=== PATIENT | female | born 1990 | race Caucasian/White ===

== ENCOUNTER → 2018-09-28 | Outpatient (CLI) | payer MEDICAID, SELFPAY ==
[2018-10-05 17:21] LABS: HPV Reflexed? NOT INDICATED
== END | disposition home or self-care (01) ==
LOC: LABSPEC 09-29 09:11
PROVIDERS: Visit Provider Obstetrics & Gynecology
DX: Z12.4 Encounter for screening for malignant neoplasm of cervix (principal)
CPT/HCPCS: 87624; 88175; G0145

== ENCOUNTER → 2019-03-23 12:57 | Outpatient (CLI) | payer SELFPAY ==
--- NOTE | 2019-03-23 13:11 | VDLE_ITS ---
Reason For Study: Rt leg swelling RIGHT LEFT GSV is normal. CFV is compressible, spontaneous, phasic, CFV is compressible, spontaneous, phasic, competent, and demonstrates normal competent and demonstrates normal augmentation. augmentation. FV is compressible, spontaneous, phasic, competent and demonstrates normal augmentation. POP V is compressible, spontaneous, phasic, competent and demonstrates normal augmentation. T/P Trunk is compressible. PTV is compressible. RT PerV is compressible. Procedure Exam performed in department. A preliminary report was called and/or faxed to [facility]. Interpretation Summary Deep veins of the right lower extremity are patent and compressible segmentally. There is no evidence of right lower extremity deep vein thrombosis. Valvular competence appears intact within the proximal deep venous system on the right . The right great saphenous vein appears patent and compressible segmentally. Ordering Physician: Genet Menard Referring Physician: José Dior Performed By: Alexsandra Do RVT
== END ==
PROVIDERS: Family Provider Family Medicine; PCP Family Medicine; Referring Provider Family Medicine; Visit Provider Family Medicine
DX: M79.89 Other specified soft tissue disorders (principal); M79.604 Pain in right leg
CPT/HCPCS: 93971

== ENCOUNTER → 2020-12-25 13:00 | Outpatient (CLI) | payer SELFPAY ==
[2020-12-28 16:54] LABS: HPV Reflexed? NOT INDICATED
== END ==
PROVIDERS: PCP Family Medicine; Visit Provider Obstetrics & Gynecology
DX: Z12.4 Encounter for screening for malignant neoplasm of cervix (principal)
CPT/HCPCS: 88175; G0145

== ENCOUNTER → 2021-01-31 | Outpatient (CLI) | payer SELFPAY | END | disposition home or self-care (01) | LOC: LABSPEC 13:56 | PROVIDERS: PCP Family Medicine; Visit Provider Obstetrics & Gynecology | DX: R30.0 Dysuria (principal) | CPT/HCPCS: 87077; 87086; 87088 ==

== ENCOUNTER 2021-02-10 09:28 | Emergency (ER) | payer SELFPAY ==
[2021-02-10 09:29] VITALS: BP 134/87; PULSE 103; RESP 18; TEMP 36.2; O2SAT 97; BMI 31.6
--- NOTE | 2021-02-10 10:06 | US_ITS ---
STUDY: FIRST TRIMESTER OBSTETRICAL ULTRASOUND REASON FOR EXAM: Female, 30 years old pain, bleeding , quant 328 LMP: 12/20/2020 TECHNIQUE: Transvaginal TECHNICAL QUALITY: Adequate. PRIOR ULTRASOUND: None. FINDINGS: There is no demonstrated intrauterine gestational sac. The estimated gestation age (EGA) by LMP is 7 weeks, 3 days. The uterus measures 10.7 x 7.4 x 5.5 cm. There is no demonstrated uterine fibroid. The cervix is closed. The endometrial measures 13.2 mm. The right ovary measures 3.9 x 3.4 x 2.0 cm. There is no right ovarian cyst. There is no visualized right adnexal mass or complex lesion. The left ovary measures 3.0 x 3.0 x 2.1 cm.. There is a small follicle within the left ovary that may measure 3.7 mm. There is no visualized left adnexal mass or complex lesion. There is no fluid in the cul de sac. US/Transvaginal w/Preg US IMPRESSION: The thickened appearance of the endometrium. There is no visualized gestational sac. Thickened appearance of the endometrium can be associated with possible early . Potentially retained products could have this appearance as well. Recommend correlation with beta-hCG. There is no visualized free fluid. There is no visualized suspicious adnexal mass. However positive test with no intrauterine depending on clinical history can raise concern for ectopic. Follow-up is warranted. Electronically Signed: Zoraida Chacon MD at 11:55 EST Tel , Service support ,
--- NOTE | 2021-02-10 10:07 | EDS_ITS ---
HPI HPI - Female History of Present Illness Chief Complaint: Vag Bld, Preg Pain Pain: Positive for Pelvic Pain Onset: Days (2) Context: Gradual Onset Timing: Continuous Quality: Positive for Cramping Location: - (pelvic, worse in right) Current Severity: Moderate Maximum Severity: Moderate Worsened by: - (nothing) Relieved by: - (nothing) Bleeding Issue: Positive for Vaginal bleeding Onset: Today Current Severity: Spotting Associated Symptoms Associated Symptoms: Negative for Dysuria, Frequency, Urgency and Hematuria Last known menstrual period: 12/20/20 Test: Positive, Urine and Home Sexually: Positive for Active and Single Partner P: 1 Ab: 0 Narrative Narrative: Patient 6-7 weeks by dates, she been having pelvic pain couple days, has become worse in the right, this morning started spotting. No syncope or presyncope. No fevers or chills. No other problems acutely. No recent illness. No injury. Patient has not had an ultrasound during his preg jazmine yet, just home test that was positive. PFSH PFSH Medical History no medical history no medical history Home Medications vit,[id number] [Prenatabs FA ] 1 tab PO DAILY 10/03/13 [History Last Taken 10/05/13 1] Allergy/AdvReac Type Severity Reaction Status Date / Time No Known Allergies Allergy Unverified 02/10/21 09:28 Surgical History no surgical history Social History Smoking Status: Never smoker ROS ROS ED Constitutional Constitutional ED: Denies chills or fever(s) Eyes Eyes: Denies change in vision or diplopia ENT ENT ED: Denies rhinorrhea or sore throat Cardiovascular Cardiovascular: Denies chest pain or palpitations Respiratory/Chest Respiratory/Chest: Denies cough or dyspnea Gastrointestinal Gastrointestinal: Reports as per HPI and abdominal pain; Denies diarrhea, nausea or vomiting Genitourinary Genitourinary ED: Reports as per HPI and vaginal bleeding; Denies dysuria or hematuria Musculoskeletal Musculoskeletal: Denies back pain or neck pain Integumentary Denies abscess or rash Neurologic Neurologic: Denies headache(s), paresthesias or weakness Psychiatric Psychiatric: Denies anxiety or suicidal thoughts EXAM Physical Exam Const Vital Signs: 02/10/21 09:29 02/10/21 11:41 Temperature 97.1 F L Temperature Source Temporal Pulse Rate 103 H 84 Respiratory Rate 18 16 Blood Pressure 134/87 H 131/74 H Blood Pressure Mean 102 93 Pulse Ox 97 99 Oxygen Delivery Method Room Air Positive well nourished and well developed General Appearance ED: well developed and NAD HEENT Reports moist mucous membranes normocephalic and atraumatic Eyes PERRL and EOMs intact bilaterally Neck full ROM and supple Resp normal respiratory effort and clear to auscultation bilaterally Cardio regular rate, regular rhythm and no murmurs Rate: Negative for tachycardic GI non-distended GI Narrative: Tender suprapubic and specially lateral aspect of right lower quadrant just superior/medial to the ASIS. No guarding or rebound. No palpable masses. Auscultation: normoactive bowel sounds Palpation: soft Speculum Exam - Vagina: vaginal bleeding Back/Spine no CVA tenderness General Back: other FROM Extremity normal to inspection General Extremety ED: Negative for edema, pulses abnormal or tenderness General Extremity: Negative for edema or pulses abnormal Neuro oriented x3, CN's II-XII intact bilaterally and no sensory deficits noted Sensorium / Orientation: awake and alert Motor Exam: strength 5/5 throughout Skin no rashes or lesions noted and no wounds MDM MDM MDM Narrative Medical decision making narrative: As below the patient's ultrasound is nondiagnostic. Her quantitative hCG is only 328. Her vital signs are stable and clinically she is stable and comfortable. Therefore, she will need close outpatient follow-up and a 48-hour repeat quantitative hCG. Her OB is Dr. Kavitha bucio. I discussed with the on-call physician Dr. Juarez, who agrees with getting 48-hour quantitative hCG and the patient will be seen soon thereafter. We discussed reasons to return patient is comfortable with that plan and understands that we are not yet able to rule out a developing ectopic but since he does not have any free fluid in the cul-de-sac on the ultrasound, we do not suspect a ruptured one at this time. Lab Data Attestation: I reviewed the patient's lab results. Labs: Laboratory Results - last 24 hr 02/10/21 02/10/21 10:15 10:15 HCG, Quant 328 H Blood Type AB POSITIVE Radiography Diagnostic Testing: Clinical Impression(s) from Imaging Studies Obstetrics Ultrasound 02/10/21 10:06 IMPRESSION: The thickened appearance of the endometrium. There is no visualized gestational sac. Thickened appearance of the endometrium can be associated with possible early . Potentially retained products could have this appearance as well. Recommend correlation with beta-hCG. There is no visualized free fluid. There is no visualized suspicious adnexal mass. However positive test with no intrauterine depending on clinical history can raise concern for ectopic. Follow-up is warranted. Electronically Signed: Zoraida Chacon MD at 11:55 EST Tel , Service support , Discharge Plan Triage Chief Complaint: Vag Bld, Preg Other Complaint: ED Provider: Kaveh Nesbitt Dx/Rx/DC Orders Clinical Impression: Vaginal bleeding affecting early , Pelvic pain affecting in first trimester, antepartum Prescriptions: No Action Prenatabs FA 1 TABLET tablet 1 tab PO DAILY RF: 0 Primary Care Provider: Linn Kate Referrals: Mic Martin MD [STAFF PHYSICIAN] - 02/12/21 Linn Kate PA [Primary Care Provider] - Activity Restrictions/Additional Instructions: Call tomorrow for appointment time on Thursday to get your repeat blood test, and your appointment in the office after that, which may be on a different day. Disposition Disposition: Home, Self Care
[2021-02-10 11:03] LABS: hCG Titer Quant., Serum 328 mIU/mL (1-3)
[2021-02-10 11:41] VITALS: BP 131/74; PULSE 84; RESP 16; O2SAT 99
== END 2021-02-10 12:39 | disposition home or self-care (01) ==
PROVIDERS: Emergency Provider Emergency Medicine
DX: O20.9 Hemorrhage in early pregnancy, unspecified (principal); O26.891 Other specified pregnancy related conditions, first trimester; R10.2 Pelvic and perineal pain; Z3A.01 Less than 8 weeks gestation of pregnancy
CPT/HCPCS: 76817; 84702; 86900; 86901; 99283; A4216

== ENCOUNTER → 2021-02-12 11:44 | Outpatient (CLI) | payer SELFPAY ==
[2021-02-12 13:27] LABS: hCG Titer Quant., Serum 41 mIU/mL (1-3)
== END ==
PROVIDERS: Visit Provider Obstetrics & Gynecology
DX: N91.2 Amenorrhea, unspecified (principal)
CPT/HCPCS: 36415; 84702

== ENCOUNTER → 2021-02-13 | Outpatient (CLI) | payer SELFPAY | END | disposition home or self-care (01) | LOC: LABSPEC 13:43 | PROVIDERS: Visit Provider Obstetrics & Gynecology | DX: N39.0 Urinary tract infection, site not specified (principal) | CPT/HCPCS: 87086; 87088 ==

== ENCOUNTER 2021-03-10 11:43 | Emergency (ER) | payer SELFPAY ==
[2021-03-10 11:44] VITALS: BP 120/86; PULSE 98; RESP 16; TEMP 36.7; O2SAT 95; BMI 30.9
--- NOTE | 2021-03-10 12:19 | EKG12_ITS ---
Test Reason : SOB\CP Blood Pressure : / mmHG Vent. Rate : 090 BPM Atrial Rate : 090 BPM P-R Int : 128 ms QRS Dur : 084 ms QT Int : 362 ms P-R-T Axes : 035 051 010 degrees QTc Int : 442 ms Normal sinus rhythm Nonspecific T wave abnormality Abnormal ECG Confirmed by LORIE RIGGINS, BRUCE ([id number]), primer expeditor and drier ALICIA MCDANIELS ([id number]) on 03/12/2021 10:06:11 AM Referred By: HERBERTH Confirmed By:BRUCE MELO MD
--- NOTE | 2021-03-10 12:20 | EX.ED.VIS.UR ---
HPI HPI - URI History of Present Illness Chief Complaint: Shortness of Breath Informant: patient Onset/Context/Timing Onset: Days Context: Gradual Onset Timing: Intermittent Current Severity: Mild Maximum Severity: Mild Associated Symptoms Associated Symptoms: Positive for Myalgias, Shortness of Breath, Chest Pain and Nonproductive cough; Negative for Nasal Congestion, Nausea, Vomiting and Diarrhea Narrative Narrative: 30-year-old female no sniffing past medical history. Patient states she believes she had Covid a year ago. Last several days to a week she has had a cough some mild shortness of breath. Intermittent aching left-sided chest pain. She is describes it as sharp. With a nonproductive cough. No fever no chills no hemoptysis no history of DVT or PE. No recent travel surgery or immobilization. No calf pain or swelling. No hemoptysis. Prior similar symptoms: Yes Recent Illness/Hospitalization: No ROS ROS ED ROS Narrative Cough. Left-sided chest pain. Review of Systems ROS Unobtainable: Denies due to encephalopathy Constitutional Constitutional ED: Denies fever(s) Eyes Eyes: Denies change in vision ENT ENT ED: Denies ear pain Cardiovascular Cardiovascular: Reports chest pain Respiratory/Chest Respiratory/Chest: Reports cough and dyspnea; Denies sputum Gastrointestinal Gastrointestinal: Denies abdominal pain, diarrhea, nausea or vomiting Genitourinary Genitourinary ED: Denies dysuria Musculoskeletal Musculoskeletal: Denies myalgias Integumentary Denies rash Neurologic Neurologic: Denies headache(s) Psychiatric Psychiatric: Denies depression Endocrine Endocrinology: Denies polyuria Hematologic/Lymphatic Hematologic/Lymphatic: Denies easy bruising Allergic/Immunologic Allergic/Immunologic ED: Denies urticaria PFSH PFSH Medical History no medical history no medical history Home Medications vit,[id number] [Prenatabs FA ] 1 tab PO DAILY 10/03/13 [History Last Taken 10/05/13 1] azithromycin [Zithromax] 250 mg PO DAILY 4 Days #4 tab 03/10/21 [Rx Last Taken Unknown] Allergy/AdvReac Type Severity Reaction Status Date / Time sulfamethoxazole AdvReac Shortness Verified 03/10/21 12:26 [From Bactrim] of breath trimethoprim [From Bactrim] AdvReac Shortness Verified 03/10/21 12:26 of breath Social History Smoking Status: Never smoker EXAM Physical Exam Narrative Exam Narrative: Well-appearing 30-year-old female no acute distress. Vital signs stable afebrile. Pulse ox 95% on room air no hypoxia. HEENT exam unremarkable. Neck nontender no JVD. Lungs clear to auscultation bilaterally. Heart regular rhythm no murmur. Abdomen soft nontender normal bowel sounds no peritoneal signs. Moving all 4 extremities. Calves are nontender without edema or cords. Neurologically patient is awake and alert with no focal motor deficits. Const Vital Signs: 03/10/21 11:44 03/10/21 12:23 03/10/21 14:40 Temperature 98.1 F Temperature Source Temporal Pulse Rate 98 77 Respiratory Rate 16 16 Respiratory Effort Short of Breath Respiratory Pattern Normal Blood Pressure 120/86 H Blood Pressure Mean 97 Pulse Ox 95 97 Oxygen Delivery Method Room Air Room Air Positive well nourished and well developed; Negative for obese, cachectic or contractures General Appearance ED: well developed and NAD; Negative for cachectic, contractures, cyanotic, diaphoretic or pallor Nutritional Appearance: Negative for cachectic or obese HEENT Reports moist mucous membranes normocephalic and atraumatic External Ear: external ears normal Neck no lymphadenopathy, supple, no meningeal signs and no JVD General: Negative for anterior neck swelling Resp normal respiratory effort and clear to auscultation bilaterally Auscultation: Negative for rales, rhonchi, wheezes or diminished lung sounds Cardio S1 normal heart sound, S2 normal heart sound and no murmurs Rate: regular rate Rhythm: regular rhythm GI non-tender, non-distended and no masses Inspection: Negative for abdominal distention Auscultation: normoactive bowel sounds Palpation: soft; Negative for tender or guarding Back/Spine no CVA tenderness and normal ROM Extremity normal to inspection and full ROM General Extremety ED: Negative for cyanosis or tenderness General Extremity: Negative for cyanosis Psych mental status grossly normal Mood & Affect: Negative for depressed Skin General Skin Exam: Negative for jaundice or pallor Lesions: no lesions Rashes: no rashes MDM MDM MDM Narrative Medical decision making narrative: 30-year-old with URI symptoms. Chest x-ray and EKG are being obtained. Multiple repeat exams patient is doing well. We discussed CTA results. She will be treated for pneumonia with Zithromax. I did send a rapid antigen Covid test but she states she has had Covid before and clinically and on a strong suspicion. She will be discharged home. Lab Data Attestation: I reviewed the patient's lab results. Lab results narrative: CBC normal white count of 4. Hemoglobin 14. Platelets 212. D-dimer is elevated 0.54 so a CTA has been obtained. Electrolytes unremarkable gap of 8 normal BUN and creatinine. Glucose 97. Labs: Laboratory Results - last 24 hr 03/10/21 03/10/21 03/10/21 14:34 14:35 14:35 WBC 4.5 RBC 5.03 Hgb 14.3 Hct 42.5 MCV 84.5 MCH 28.4 MCHC 33.6 RDW Std Deviation 38.8 RDW Coeff of Saad 12.7 Plt Count 212 MPV 10.0 Immature Gran % (Auto) 0.400 Neut % (Auto) 60.8 Lymph % (Auto) 25.2 Dewey % (Auto) 10.9 H Eos % (Auto) 1.8 Baso % (Auto) 0.9 Absolute Neuts (auto) 2.7 Absolute Lymphs (auto) 1.13 Nucleated RBC % 0 D-Dimer Quant (PE/DVT) 0.54 H* Sodium 138 Potassium 4.0 Chloride 105 Carbon Dioxide 25.0 Anion Gap 8 BUN 8 Creatinine 0.64 Estim Creat Clear Calc 120.32 Est GFR (MDRD) Af Amer 139 Est GFR (MDRD) Non-Af 114 BUN/Creatinine Ratio 12.4 Glucose 97 Calcium 9.7 Radiography Diagnostic Testing: Clinical Impression(s) from Imaging Studies Chest X-Ray 03/10/21 12:44 IMPRESSION: Normal x-ray examination of the chest. Electronically Signed: Jefferson Elmore MD at 13:23 EST Tel , Service support , Chest CTA 03/10/21 15:15 IMPRESSION: No evidence of acute pulmonary emboli to the segmental level. Left lower lobe pneumonia. Electronically Signed: Hermilo Antione MD at 17:33 EST Tel , Service support , Chest x-ray, portable, single view interpreted by myself shows no acute abnormality. CT of the chest is read by the radiologist and reviewed by me and agree left lower lobe pneumonia. Rhythm Strip Rhythm Strip: Sinus Rhythm Rate: 90 Ectopy: None EKG Initial EKG: Attestation: I personally reviewed and interpreted this EKG as follows: Interpretation: Sinus Rhythm and No Acute Injury Pattern Comments: Normal sinus rhythm rate of 90 no acute signs of SD nor ischemia. Discharge Plan Triage Chief Complaint: Shortness of Breath ED Provider: Jovany Basilio Dx/Rx/DC Orders Clinical Impression: Pneumonia Instructions: ED Pneumonia (Adult) Prescriptions: New azithromycin [Zithromax] 250 mg tablet 250 mg PO DAILY 4 Days Qty: 4 RF: 0 No Action Prenatabs FA 1 TABLET tablet 1 tab PO DAILY RF: 0 Primary Care Provider: Linn Kate Referrals: Linn Kate PA [Primary Care Provider] - 1 Week if not improving Activity Restrictions/Additional Instructions: Plenty of fluids and rest Motrin Tylenol for pain.. Follow-up with your primary care provider if not improving. Zithromax daily starting tomorrow. Disposition Disposition: Home, Self Care
--- NOTE | 2021-03-10 12:44 | RAD_ITS ---
STUDY: X-RAY CHEST REASON FOR EXAM: Female, 30 years old. cough TECHNIQUE: Single AP portable view of the chest. COMPARISON: None. FINDINGS: The lungs are clear and expanded. There is no demonstrated pleural abnormality. Normal size heart. Normal mediastinum and sammy. Normal visualized pulmonary arteries. Normal visualized aortic arch and descending thoracic aorta. Normal visualized thoracic spine. Normal visualized ribs, clavicles, and shoulders. There is no demonstrated abnormality of the visualized soft tissue structures of the upper abdomen. RAD/Chest 1 View (Portable) IMPRESSION: Normal x-ray examination of the chest. Electronically Signed: Jefferson Elmore MD at 13:23 EST Tel , Service support ,
[2021-03-10 14:40] VITALS: PULSE 77; RESP 16; O2SAT 97
[2021-03-10 14:45] LABS: Absolute Lymphocyte Count 1.13 X10^3/uL (0.83-4.51); Absolute Neutrophil Count 2.7 X10^3/uL (2.0-7.7); Basophil# 0.04 X10^3/uL; Basophil% 0.9 % (0-1); Eosinophil# 0.08 X10^3/uL; Eosinophils% 1.8 % (0-5); Hematocrit 42.5 % (37-47); Hemoglobin 14.3 g/dL (12.0-15.0); Lymphocyte # 1.13 X10^3/ul (0.83-4.51); Lymphocyte % 25.2 % (19-41); Mean Corp Hgb Conc 33.6 g/dL (32-36); Mean Corpuscular Hgb 28.4 pg (27.0-32.0); Mean Corpuscular Volume 84.5 fL (81-99); Monocyte# 0.49 X10^3/uL; Monocyte% 10.9 % (0-10); NRBC Flagged by Analyzer 0 % (0-5); Neutrophil # 2.73 X10^3/uL (2.7-7.7); Neutrophil % 60.8 % (47-70); Platelet Count 212 K/mm3 (150-450); RBC Distribution Width CV 12.7 % (11.6-14.6); RBC Distribution Width SD 38.8 fl (35.1-43.9); Red Blood Count 5.03 M/mm3 (4.2-5.4); White Blood Count 4.5 K/mm3 (4.4-11.0)
[2021-03-10 15:01] LABS: D-Dimer Quantitative (DVT/PE) 0.54 FEU/ug/m (0.27-0.49)
--- NOTE | 2021-03-10 15:15 | CT_ITS ---
INDICATION: elevated d-dimer. left cp EXAMINATION: CTA Chest WO/W Contrast Injection TECHNIQUE: Helically acquired images were obtained of the chest following administration of IV contrast. A radiation dose optimization technique was used for this scan. 3D postprocessing images including MIPS were reviewed. IV Contrast dosage and agent: IV 100mL [id number] COMPARISON: None. FINDINGS: Lungs: Patchy opacities in the left lower lobe. Mediastinum: The cardiomediastinal silhouette is not enlarged. No mediastinal, hilar or axillary adenopathy. The thoracic aorta is unremarkable. No obvious filling defect seen within the visualized pulmonary arteries. Pleura: Unremarkable Bones/Soft tissues: No suspicious osseous or soft tissue lesions Upper abdomen: Hepatic steatosis. CT/CTA Chest W/WO Contrast IMPRESSION: No evidence of acute pulmonary emboli to the segmental level. Left lower lobe pneumonia. Electronically Signed: Hermilo Antoine MD at 17:33 EST Tel , Service support ,
[2021-03-10 16:07] LABS: Anion Gap 8 (5-15); BUN 8 mg/dL (7-18); BUN/Creat Ratio 12.4 RATIO (10-20); Calcium,Total 9.7 mg/dL (8.5-10.1); Chloride 105 mmol/L (98-107); Creatinine, Serum 0.64 mg/dL (0.55-1.02); EST Glomerular Filtration Rate 114 mL/min (>60); Est Glom Filt Rate - Afr Amer 139 mL/min (>60); Estimated Creatinine Clearance 120.32 ml/min; Glucose 97 mg/dL (74-106); Sodium Level 138 mmol/L (136-145)
[2021-03-10 18:03] VITALS: PULSE 84; RESP 17; O2SAT 96
== END 2021-03-10 18:04 | disposition home or self-care (01) ==
PROVIDERS: Emergency Provider Emergency Medicine
DX: J18.9 Pneumonia, unspecified organism (principal)
CPT/HCPCS: 71045; 71275; 80048; 85025; 85379; 87426; 93005; 99283; Q9967; A4216

== ENCOUNTER → 2021-10-11 | Outpatient (CLI) | payer SELFPAY ==
[2021-10-11 16:07] LABS: Absolute Lymphocyte Count 1.63 X10^3/uL (0.83-4.51); Absolute Neutrophil Count 4.6 X10^3/uL (2.0-7.7); Basophil# 0.04 X10^3/uL; Basophil% 0.6 % (0-1); Eosinophil# 0.07 X10^3/uL; Hematocrit 43.1 % (37-47); Hemoglobin 14.8 g/dL (12.0-15.0); Lymphocyte # 1.63 X10^3/ul (0.83-4.51); Lymphocyte % 23.8 % (19-41); Mean Corp Hgb Conc 34.3 g/dL (32-36); Mean Corpuscular Hgb 28.1 pg (27.0-32.0); Mean Corpuscular Volume 81.8 fL (81-99); Mean Platelet Vol. 10.4 fl (6.2-12.0); Monocyte# 0.52 X10^3/uL; Monocyte% 7.6 % (0-10); NRBC Flagged by Analyzer 0 % (0-5); Neutrophil # 4.56 X10^3/uL (2.7-7.7); Neutrophil % 66.6 % (47-70); Platelet Count 263 K/mm3 (150-450); RBC Distribution Width CV 13.2 % (11.6-14.6); RBC Distribution Width SD 39.4 fl (35.1-43.9); Red Blood Count 5.27 M/mm3 (4.2-5.4); White Blood Count 6.9 K/mm3 (4.4-11.0)
[2021-10-11 16:22] LABS: Erythrocyte Sedimentation Rate 13 mm/hr (0-30)
[2021-10-11 16:54] LABS: AST(SGOT) 47 U/L (15-37); Alanine Aminotransfer ALT/SGPT 96 U/L (13-56); Albumin, Serum 4.3 g/dL (3.2-5.0); Alkaline Phosphatase 97 U/L (45-117); Amylase 42 U/L (25-115); Anion Gap 5 (5-15); BUN 11 mg/dL (7-18); BUN/Creat Ratio 16.2 RATIO (10-20); Bilirubin, Direct 0.11 mg/dL (0.00-0.30); CRP < 2.90 mg/L (0.0-3.0); Calcium,Total 9.7 mg/dL (8.5-10.1); Chloride 103 mmol/L (98-107); Creatinine, Serum 0.68 mg/dL (0.55-1.02); EST Glomerular Filtration Rate 107 mL/min (>60); Est Glom Filt Rate - Afr Amer 129 mL/min (>60); Ferritin 91 ng/mL (8-252); Globulin 4.2 g/dL (2.2-4.2); Glucose 100 mg/dL (74-106); Lipase 202 U/L (73-393); Potassium 3.3 mmol/L (3.5-5.1); Protein, Total 8.5 g/dL (6.4-8.2); Sodium Level 138 mmol/L (136-145)
[2021-10-14 13:07] LABS: Anti-Centromere B Ab <0.2 AI (0.0-0.9); Anti-Chromatin <0.2 AI (0.0-0.9); Anti-Jo <0.2 AI (0.0-0.9); Anti-Scleroderma-70 AB <0.2 AI (0.0-0.9); RNP Ab <0.2 AI (0.0-0.9); SJOGREN'S Anti-SS-A test 0.6 AI (0.0-0.9); SJOGREN'S Anti-SS-B test 0.2 AI (0.0-0.9); Smith Ab <0.2 AI (0.0-0.9)
[2021-10-14 14:12] LABS: Anti-Mitochondrial AB <20.0 Units (0.0-20.0); Anti-dsDNA Ab 1 IU/mL (0-9)
[2021-10-14 18:07] LABS: Cytoplasmic Ab (C-ANCA) <1:20 titer (Neg:<1:20); HEPATITIS B SURFACE AG Negative (Negative); Hep C Antibodies <0.1 s/co ratio (0.0-0.9); Hepatitis A IgM Antibody Negative (Negative); Hepatitis B Core AB IgM Negative (Negative)
[2021-10-14 21:00] LABS: Angiotensin Convert Enzyme 31 U/L (14-82); Anti-Smooth Muscle ABS 4 Units (0-19); Perinuclear Ab (P-ANCA) <1:20 titer (Neg:<1:20)
[2021-10-15 16:09] LABS: Immunoglobulin A 204 mg/dL (87-352)
[2021-10-15 17:25] LABS: Endomysial Antibody IgA Negative (Negative); t-Transglutaminase IgA <2 U/mL (0-3)
== END | disposition home or self-care (01) ==
LOC: LAB 15:13
PROVIDERS: Referring Provider Nurse Practitioner Adult Health; Visit Provider Nurse Practitioner Adult Health
DX: R10.11 Right upper quadrant pain (principal); K76.0 Fatty (change of) liver, not elsewhere classified; K21.9 Gastro-esophageal reflux disease without esophagitis; R74.8 Abnormal levels of other serum enzymes; E80.6 Other disorders of bilirubin metabolism
CPT/HCPCS: 36415; 80053; 80074; 82150; 82164; 82248; 82728; 82784; 83516; 83690; 85025; 85610; 85652; 86140; 86225; 86235; 86255; 86256

== ENCOUNTER → 2022-01-06 | Outpatient (CLI) | payer SELFPAY ==
--- NOTE | 2022-01-06 09:44 | NM_ITS ---
CLINICAL: 31-year-old female with history of right upper quadrant abdominal pain. RADIONUCLIDE HEPATOBILIARY SCINTIGRAPHY COMPARISON: None available FINDINGS: Following the intravenous administration of 6.0 mCi of 99m Tc Mebrofenin, hepatobiliary images reveal: 1. Relatively prompt and homogeneous radiopharmaceutical concentration is noted by a normal sized liver. No parenchymal defects are identified. 2. Gallbladder activity is identified at 10 minutes post radiopharmaceutical administration. 3. Small intestinal tract is observed at 60 minutes following tracer injection. 4. Washout of the radiopharmaceutical by the hepatic parenchyma appears qualitatively normal. Cholecystokinin (0.02 ug/kg) was administered intravenously over a 3-minute period. The post CCK gallbladder ejection fraction calculated at 20 minutes following Cholecystokinin administration was noted to be 92.0 % (normal greater than 35%). During 30 minutes of post CCK imaging, there is no scintigraphic evidence of reflux of the radiotracer into the common hepatic duct or refilling of the gallbladder. There is scintigraphic evidence of post CCK duodenal gastric reflux. NM/Hepatobilliary Img w/Pharm Int IMPRESSION: 1. A gallbladder ejection fraction calculated to be greater than 35% following the administration of Cholecystokinin makes the probability of functional hepatobiliary disease (gallbladder and/or sphincter of Oddi dyskinesia) and/or organic hepatobiliary disease (chronic acalculous cholecystitis and/or cystic duct syndrome) to be low. (Avelino Rodriguez et al, Journal of Nuclear Medicine 32:1695, 1990). 2. There is scintigraphic evidence of post CCK duodenal-gastric reflux. (Mary Carmen et al, Nucl Med Malena Claudia Press pg. 35, 1980). Electronically Signed: Jefferson Bowie, at 20:42 EDT ,
== END | disposition home or self-care (01) ==
LOC: NM 09:43
PROVIDERS: Referring Provider Nurse Practitioner Adult Health; Visit Provider Nurse Practitioner Adult Health
DX: R10.11 Right upper quadrant pain (principal)
CPT/HCPCS: 78227; A9537; J2805

== ENCOUNTER → 2022-01-28 | Outpatient (CLI) | payer SELFPAY ==
[2022-02-05 14:54] LABS: HPV APTIMA, High Risk Negative (Negative)
== END | disposition home or self-care (01) ==
PROVIDERS: Visit Provider Obstetrics & Gynecology
DX: Z12.4 Encounter for screening for malignant neoplasm of cervix (principal)
CPT/HCPCS: 87624; 88175; G0145

== ENCOUNTER → 2022-04-16 | Outpatient (CLI) | payer SELFPAY ==
[2022-04-16 10:39] LABS: Absolute Neutrophil Count 6.4 X10^3/uL (2.0-7.7); Basophil# 0.03 X10^3/uL; Basophil% 0.4 % (0-1); Eosinophil# 0.07 X10^3/uL; Eosinophils% 0.8 % (0-5); Hematocrit 41.9 % (37-47); Hemoglobin 13.8 g/dL (12.0-15.0); Lymphocyte % 16.5 % (19-41); Mean Corp Hgb Conc 32.9 g/dL (32-36); Mean Corpuscular Hgb 27.6 pg (27.0-32.0); Mean Corpuscular Volume 83.8 fL (81-99); Mean Platelet Vol. 10.3 fl (6.2-12.0); Monocyte# 0.55 X10^3/uL; Monocyte% 6.5 % (0-10); NRBC Flagged by Analyzer 0 % (0-5); Neutrophil # 6.36 X10^3/uL (2.7-7.7); Neutrophil % 74.9 % (47-70); Platelet Count 207 K/mm3 (150-450); RBC Distribution Width CV 14.2 % (11.6-14.6); RBC Distribution Width SD 42.8 fl (35.1-43.9); White Blood Count 8.5 K/mm3 (4.4-11.0)
[2022-04-16 12:02] LABS: HIV - WCH Non-Reactive (Nonreactive); Hepatitis B Surface Antigen Non-Reactive (Nonreactive); Hepatitis C Antibody Non-Reactive (Nonreactive); Rubella IgG Reactive (Nonreactive); Syphilis Antibodies Non-reactive
[2022-04-17 15:21] LABS: V-Zoster IgG (Immunity) 958 index (Immune >165)
[2022-04-19 12:08] LABS: Chlamydia By Nucleic Acid AMP Negative (Negative)
[2022-04-19 14:59] LABS: Gonococcus By Nucleic Acid AMP Negative (Negative)
== END | disposition home or self-care (01) ==
LOC: WOBLAB 09:55
PROVIDERS: Visit Provider Obstetrics & Gynecology
DX: Z34.81 Encounter for supervision of other normal pregnancy, first trimester (principal)
CPT/HCPCS: 85025; 86703; 86762; 86780; 86787; 86803; 87086; 87088; 87340; 87491; 87591

== ENCOUNTER 2022-04-24 13:01 | Emergency (ER) | payer SELFPAY ==
[2022-04-24 13:02] VITALS: BP 123/90; PULSE 92; RESP 16; TEMP 36.4; O2SAT 97; BMI 31.9
--- NOTE | 2022-04-24 14:42 | US_ITS ---
EXAM: US , TRANSVAGINAL CLINICAL INDICATION: pain -- pain, 1st tri preg, report right ovarian cyst TECHNIQUE: Real-time transvaginal obstetrical ultrasound of the maternal pelvis and a first trimester with image documentation. Transvaginal imaging was used for better evaluation of the fetus and adnexa. This report was created using go2 media report generation technology. COMPARISON: None. FINDINGS: GESTATION: Gravid uterus measures 12.8 x 6.8 x 9.1 cm. Single live intrauterine gestation. Cardiac activity is documented with heart rate of 141. Mean sonographic estimated gestational age based on crown-rump length measures 6 weeks 4 days with estimated date of delivery 12/14/2022. Normal yolk sac. UTERUS/CERVIX: No myometrial mass. OVARIES: Left ovary measures 2.3 x 2.6 x 2.2 cm. Right ovary measures 4 x 2.5 x 3.1 cm. Simple dominant cyst consistent with corpus luteum of measures 2.4 x 2.4 x 2.7 cm. No mass. FREE FLUID: No free fluid. US/Transvaginal w/Preg US IMPRESSION: Single live intrauterine gestation with EGA 6 weeks 4 days. Electronically Signed: Loulou Dobbs MD at 16:53 EST Reading Location ID and State: [id number] / Tel , Service support ,
[2022-04-24 16:12] LABS: hCG Titer Quant., Serum 13087 mIU/mL (1-3)
[2022-04-24 16:29] LABS: Bacteria 0 SEEN /hpf (None Seen); Mucous, Urine 0 SEEN /hpf (<or=2+); Red Blood Cells-Urine 0 SEEN /hpf (0-5)
--- NOTE | 2022-04-24 16:30 | EDS_ITS ---
HPI History of Present Illness Chief Complaint: Abd Pain Informant: patient and spouse/S.O. Narrative Narrative: Increasing pelvic cramping since last night. G3, P1 early gestation. She followed up with [facility] a week ago stating ultrasound was done intrauterine however earlier than her last menstrual period. She noted just a yolk sac. She been using Tylenol for cramping that she has been having on and off, worse since yesterday. No urinary symptoms. No vaginal bleeding. No vaginal discharge. Denies fevers. Denies any trauma. She reports only child 8 years old she had a miscarriage on her previous 1. She reported on ultrasound she may had a right ovarian cyst that was not large however did not know the size. She denies any intercourse recently. [facility] Medical History Abdominal pain Anxiety Diarrhea Exercise-induced asthma Fatty liver GERD (gastroesophageal reflux disease) IBS (irritable bowel syndrome) Migraine, unspecified, intractable, without status migrainosus Trouble swallowing Home Medications vits,calcium no.78-iron fumarate-folic acid 29 mg-1 mg tablet (Prenatabs FA) 1 tab PO DAILY 10/03/13 [History Last Taken 10/05/13 1] omeprazole 40 mg capsule,delayed release 40 mg PO DAILY 12/04/21 [History Last Taken Unknown] escitalopram oxalate 10 mg tablet (Lexapro) 10 mg PO DAILY 02/03/22 [History Last Taken Unknown] cephalexin 500 mg capsule 500 mg PO Q12 #14 CAPSULES 04/24/22 [Rx Last Taken Unknown] Allergy/AdvReac Type Severity Reaction Status Date / Time sulfamethoxazole AdvReac Shortness Verified 04/24/22 13:04 [From Bactrim] of breath trimethoprim [From Bactrim] AdvReac Shortness Verified 04/24/22 13:04 of breath Social History Smoking Status: Never smoker alcohol intake: never ROS ROS ED Constitutional Constitutional ED: Denies chills, fever(s) or sweats Eyes Eyes: Denies change in vision ENT ENT ED: Denies dysphagia or sore throat Cardiovascular Cardiovascular: Denies chest pain, leg edema, palpitations or racing heartbeat Respiratory/Chest Respiratory/Chest: Denies cough, dyspnea or dyspnea on exertion Gastrointestinal Gastrointestinal: Denies abdominal pain, diarrhea, nausea or vomiting Genitourinary Genitourinary ED: Reports other Details: Pelvic cramping ; Denies dysuria, hematuria or urinary frequency Musculoskeletal Musculoskeletal: Denies back pain, extremity pain or neck pain Integumentary Denies rash or wounds Neurologic Neurologic: Denies headache(s), paresthesias or weakness EXAM Physical Exam Const Vital Signs: 04/24/22 13:02 Temperature 97.5 F L Temperature Source Temporal Pulse Rate 92 Respiratory Rate 16 Blood Pressure 123/90 H Blood Pressure Mean 101 Pulse Ox 97 Oxygen Delivery Method Room Air Positive well nourished and well developed General Appearance ED: well developed and NAD HEENT Reports moist mucous membranes normocephalic and atraumatic Eyes PERRL, EOMs intact bilaterally and conjunctivae normal General Eye ED: Yes normal appearance of both eyes Neck no lymphadenopathy and supple General: Negative for tenderness Chest Wall Chest: Negative for tenderness Resp normal respiratory effort and normal air movement Effort and Inspection: symmetric chest movement; Negative for respiratory distress Cardio regular rate, regular rhythm and no murmurs Peripheral Pulses: pulses 2+ throughout GI normal to inspection, nondistended, normoactive bowel sounds and non-tender GI Narrative: Rausch's or McBurney's tenderness. Palpation: Negative for guarding or rebound tenderness present Back/Spine no CVA tenderness and no thoracic nor lumbar tenderness Extremity normal to inspection General Extremety ED: Negative for edema or tenderness General Extremity: Negative for edema Neuro oriented x3 and no sensory deficits noted Sensorium / Orientation: awake and alert Skin no rashes or lesions noted and no wounds MDM MDM MDM Narrative Medical decision making narrative: Interventions / MDM: Differential diagnosis: Ovarian cyst, pelvic pain in Diagnosis considered but do not suspect: Ectopic however reported intrauterine from a week ago My EKG interpretation: N/A Imaging independently reviewed and interpreted by myself: Transvaginal ultrasound noted yolk sac in her uterine heart tones 142. External documents reviewed: N/A Test considered but not ordered:N/A ED course: Pelvic pain with no vaginal bleeding for concerns of threatened miscarriage at this time. Reported history ovarian cysts. She took Tylenol prior to arrival. hCG [id number], urine with leukocytes. Culture sent. Ultrasound 6 weeks 4 days intrauterine heart tones 141. Patient reassured pelvic rest, discussed Tylenol as needed. Follow-up with her OB at [place]. Re-evaluation: stable and improved Disposition discussed with patient/family/significant other: Patient and significant other Case discussed with consulting clinician: N/A Lab Data Attestation: I reviewed the patient's lab results. Labs: Laboratory Results - last 24 hr 04/24/22 04/24/22 14:50 16:15 HCG, Quant 88706 H Urine Color Yellow Urine Clarity Sl. Cloudy Urine pH 6.0 Ur Specific [place] 1.015 Urine Protein Negative Urine Glucose (UA) Normal Urine Ketones Negative Urine Occult Blood Negative Urine Nitrite Negative Urine Bilirubin Negative Urine Urobilinogen Normal Ur Leukocyte Esterase 500 H Urine RBC 0 SEEN Urine WBC 0-5 SEEN Ur Squamous Epith Cells 0-5 SEEN Urine Bacteria 0 SEEN Urine Mucus 0 SEEN Radiography Diagnostic Testing: Clinical Impression(s) from Imaging Studies Obstetrics Ultrasound 04/24/22 14:42 IMPRESSION: Single live intrauterine gestation with EGA 6 weeks 4 days. Electronically Signed: Loulou Dobbs MD at 16:53 EST Reading Location ID and State: [id number] / Tel , Service support , Discharge Plan Triage Chief Complaint: Abd Pain ED Provider: Telly Vargas Dx/Rx/DC Orders Clinical Impression: First trimester , UTI in Instructions: Urinary Tract Infections in Women, 1st Trimester Prescriptions: New cephalexin [cephalexin] 500 mg capsule 500 mg PO Q12 Qty: 14 0RF No Action omeprazole 40 mg capsule,delayed release(DR/EC) 40 mg PO DAILY escitalopram oxalate [Lexapro] 10 mg tablet 10 mg PO DAILY Prenatabs FA 1 TABLET tablet 1 tab PO DAILY Primary Care Provider: Linn Kate Referrals: Marty Hough MD [Med Staff - Active Staff] - 1 Week Linn Kate PA [Primary Care Provider] - Activity Restrictions/Additional Instructions: Take antibiotic as prescribed. Tylenol as needed. Ultrasound with 6 weeks 4- day heart tones 141. Monitor for any bleeding. Follow-up with your OB doctor. Disposition Disposition: Home, Self Care
[2022-04-24 16:33] LABS: Color, Urine Yellow (Yellow); Glucose, Dipstick Normal (Normal); Ketone-Dipstick Negative (Negative); Leukocyte Esterase-Dipstick 500 /ul (Negative); Nitrite-Dipstick Negative (Negative); Occult Blood-Urine Negative /ul (Negative); Protein-Dipstick Negative (Negative); Specific Gravity, Urine 1.015 (1.002-1.030); Urine Bilirubin Dipstick Negative (Negative); Urine Clarity Sl. Cloudy (Clear); Urine Urobilinogen Normal (Normal)
[2022-04-24 16:45] LABS: Squamous Epithelial Cells - UA 0-5 SEEN /hpf (5-10); White Blood Cells 0-5 SEEN /hpf (0-5)
[2022-04-24] MEDS: Cephalexin 250 MG Capsule 500 MG PO (17:26)
[2022-04-24 17:28] VITALS: BP 126/78; PULSE 90; RESP 18
== END 2022-04-24 17:31 | disposition home or self-care (01) ==
PROVIDERS: Emergency Provider Emergency Medicine; Visit Provider Emergency Medicine
DX: O23.41 Unspecified infection of urinary tract in pregnancy, first trimester (principal); O26.891 Other specified pregnancy related conditions, first trimester; R10.2 Pelvic and perineal pain; Z3A.01 Less than 8 weeks gestation of pregnancy
CPT/HCPCS: 76817; 81001; 84702; 87086; 87088; 99284; A4216

== ENCOUNTER 2022-06-18 14:03 | Emergency (ER) | payer OTHER, SELFPAY ==
[2022-06-18] VITALS (7 sets, daily range): BP systolic 109–211; BP diastolic 72–195; PULSE 83–117; RESP 16–18; TEMP 36.1; O2SAT 95–99; BMI 32.8
--- NOTE | 2022-06-18 14:38 | CT_ITS ---
EXAM: CT ANGIOGRAPHY CHEST WITHOUT AND WITH INTRAVENOUS CONTRAST CLINICAL INDICATION: Palpitations, 15 WEEKS TECHNIQUE: Helically acquired angiography images were obtained of the chest without and with intravenous contrast. This CT exam was performed using one or more of the following dose reduction techniques: automated exposure control, adjustment of the mA and/or kV according to patient size, and/or use of iterative reconstruction technique. This report was created using [employer] report generation technology. MIP reconstructed images were created and reviewed. CONTRAST: IV 100mL Isovue-370 COMPARISON: 03/10/2021. FINDINGS: PULMONARY ARTERIES: Unremarkable. Normal in caliber. No evidence of pulmonary embolism. AORTA: Unremarkable. Normal in caliber. No evidence of dissection. GREAT VESSELS OF AORTIC ARCH: Unremarkable. Normal in caliber. No evidence of dissection. LUNGS AND PLEURAL SPACES: Unremarkable. No mass. No consolidation or edema. No pleural effusion or thickening. No pneumothorax. HEART: Unremarkable. Heart size is normal. No pericardial effusion. No signs of right heart strain, ratio of right ventricle to left ventricle measures less than 1. MEDIASTINUM: Unremarkable. No mediastinal or hilar adenopathy. Esophagus is unremarkable. No hiatal hernia. THYROID: Unremarkable. No thyroid lesions. BONES/JOINTS: Unremarkable. No suspicious lytic or blastic abnormality. Diffuse fatty infiltration. CT/CTA Chest W/WO Contrast IMPRESSION: 1. No acute findings. 2. Hepatic steatosis. Electronically Signed: Loulou Dobbs MD at 16:53 EDT Reading Location ID and State: [id number] / Tel , Service support ,
--- NOTE | 2022-06-18 14:59 | EX.ED.DYSGE1 ---
HPI History of Present Illness Chief Complaint: Palpitations Informant: patient Onset/Context/Timing Onset: Today Context: Gradual Onset Timing: Continuous Quality: Uncomfortable Location: Chest Worsened by: Nothing Relieved by: Nothing Narrative Narrative: Patient presents with palpitations that began today. Patient states they began gradually. Patient states it began early this morning. Patient states it has been constant all day. Patient describes it as a uncomfortable feeling in her chest. Patient states nothing makes it better nothing makes it worse. Patient states she feels like her heart is racing and beating hard at times. Patient midst to some shortness of breath with this. Patient also admits to some nausea but denies any vomiting. Patient does admit to some mild pain in her upper back with this. Patient states she is approximately 15 weeks . [facility] Medical History Abdominal pain Anxiety Diarrhea Exercise-induced asthma Fatty liver GERD (gastroesophageal reflux disease) IBS (irritable bowel syndrome) Migraine, unspecified, intractable, without status migrainosus Trouble swallowing Home Medications vits,calcium no.78-iron fumarate-folic acid 29 mg-1 mg tablet (Prenatabs FA) 1 tab PO DAILY 10/03/13 [History Last Taken 10/05/13 1] omeprazole 40 mg capsule,delayed release 40 mg PO DAILY 12/04/21 [History Last Taken Unknown] escitalopram oxalate 10 mg tablet (Lexapro) 10 mg PO DAILY 02/03/22 [History Last Taken Unknown] cetirizine 10 mg tablet (Zyrtec) 10 mg PO DAILY PRN allergies 06/18/22 [History Last Taken Unknown] Allergy/AdvReac Type Severity Reaction Status Date / Time sulfamethoxazole AdvReac Shortness Verified 06/18/22 14:07 [From Bactrim] of breath trimethoprim [From Bactrim] AdvReac Shortness Verified 06/18/22 14:07 of breath Social History Smoking Status: Never smoker alcohol intake: never ROS ROS ED Constitutional Constitutional ED: Denies chills or fever(s) Eyes Eyes: Denies blurry vision or change in vision ENT ENT ED: Denies rhinorrhea or sore throat Cardiovascular Cardiovascular: Reports chest pain, palpitations and racing heartbeat Respiratory/Chest Respiratory/Chest: Reports dyspnea; Denies cough Gastrointestinal Gastrointestinal: Reports nausea; Denies vomiting Genitourinary Genitourinary ED: Denies dysuria or hematuria Musculoskeletal Musculoskeletal: Reports back pain; Denies neck pain Integumentary Denies abscess or rash Neurologic Neurologic: Denies headache(s) or weakness Allergic/Immunologic Allergic/Immunologic ED: Denies mouth swelling or urticaria EXAM Physical Exam Const Vital Signs: 06/18/22 14:05 06/18/22 15:01 06/18/22 15:03 Temperature 96.9 F L Temperature Source Temporal Pulse Rate 117 H 97 Pulse Rate [Lying] Pulse Rate [Sitting (for 1 minute prior to obtaining)] Pulse Rate [Standing (for 1 minute prior to obtaining)] Respiratory Rate 18 18 Respiratory Effort Normal Non-Labored Respiratory Pattern Normal Blood Pressure 211/195 H 118/84 H Blood Pressure [Lying] Blood Pressure [Sitting (for 1 minute prior to obtaining)] Blood Pressure [Standing (for 1 minute prior to obtaining)] Blood Pressure Mean 200 95 Blood Pressure Mean [Lying] Blood Pressure Mean [Sitting (for 1 minute prior to obtaining)] Blood Pressure Mean [Standing (for 1 minute prior to obtaining)] Pulse Ox 95 96 Oxygen Delivery Method Room Air Room Air 06/18/22 15:15 06/18/22 16:00 06/18/22 17:00 Temperature Temperature Source Pulse Rate 83 89 Pulse Rate [Lying] Pulse Rate [Sitting (for 1 minute prior to obtaining)] Pulse Rate [Standing (for 1 minute prior to obtaining)] Respiratory Rate 18 16 Respiratory Effort Respiratory Pattern Blood Pressure 116/78 128/77 H 112/72 Blood Pressure [Lying] Blood Pressure [Sitting (for 1 minute prior to obtaining)] Blood Pressure [Standing (for 1 minute prior to obtaining)] Blood Pressure Mean 90 94 85 Blood Pressure Mean [Lying] Blood Pressure Mean [Sitting (for 1 minute prior to obtaining)] Blood Pressure Mean [Standing (for 1 minute prior to obtaining)] Pulse Ox 98 99 Oxygen Delivery Method Room Air Room Air 06/18/22 17:03 06/18/22 18:38 Temperature Temperature Source Pulse Rate 83 Pulse Rate [Lying] 89 Pulse Rate [Sitting (for 1 minute prior to obtaining)] 102 H Pulse Rate [Standing (for 1 minute prior to obtaining)] 105 H Respiratory Rate 16 Respiratory Effort Respiratory Pattern Blood Pressure 128/85 H Blood Pressure [Lying] 109/74 Blood Pressure [Sitting (for 1 minute prior to obtaining)] 127/79 H Blood Pressure [Standing (for 1 minute prior to obtaining)] 127/89 H Blood Pressure Mean Blood Pressure Mean [Lying] 85 Blood Pressure Mean [Sitting (for 1 minute prior to obtaining)] 95 Blood Pressure Mean [Standing (for 1 minute prior to obtaining)] 101 Pulse Ox 99 Oxygen Delivery Method Positive well nourished, well developed and obese General Appearance ED: well developed and NAD Nutritional Appearance: obese HEENT normocephalic and atraumatic Eyes PERRL and EOMs intact bilaterally Neck supple and no JVD Chest Wall inspection of chest normal and palpation of chest normal Resp normal respiratory effort and clear to auscultation bilaterally Effort and Inspection: Negative for respiratory distress Cardio regular rhythm and no murmurs Rate: tachycardic GI normal to inspection, nondistended, normoactive bowel sounds, soft to palpation, non-tender and non-distended Palpation: soft Extremity normal to inspection General Extremety ED: Negative for edema or tenderness General Extremity: Negative for edema Neuro oriented x3, CN's II-XII intact bilaterally and no sensory deficits noted Sensorium / Orientation: awake and alert Motor Exam: strength 5/5 throughout Psych mental status grossly normal MDM MDM MDM Narrative Medical decision making narrative: Differential diagnosis includes hypertensive urgency, preeclampsia, cardiac dysrhythmia, cardiac ischemia, pulmonary embolism, pneumonia, electrolyte abnormality Triaminic and GERD. EKG will be obtained to assess for cardiac dysrhythmia and cardiac ischemia. CTA of the chest will be obtained to assess for pulmonary embolism. CBC will be obtained to assess for leukocytosis and anemia. Comprehensive metabolic profile will be obtained to assess for hepatic function, renal function, and electrolyte abnormalities. Quantitative baseline will be obtained to assess for . Lactate will be obtained to assess for sepsis, troponin will be obtained to assess for cardiac ischemia. Lab Data Attestation: I reviewed the patient's lab results. Lab results narrative: CBC was reviewed and was within normal limits. Comprehensive metabolic profile was reviewed and was normal. High-sensitivity troponin was reviewed and was normal. Lactate was reviewed and was normal at 1.8. Quantitative hCG was reviewed and was 65100. Urinalysis was reviewed. There is no evidence of urinary tract infection or hematuria. Labs: Laboratory Results - last 24 hr 06/18/22 06/18/22 06/18/22 15:05 15:05 15:05 WBC 8.7 RBC 4.39 Hgb 12.6 Hct 37.1 MCV 84.5 MCH 28.7 MCHC 34.0 RDW Std Deviation 42.5 RDW Coeff of Saad 13.9 Plt Count 164 MPV 10.5 Immature Gran % (Auto) 0.600 Neut % (Auto) 78.7 H Lymph % (Auto) 12.6 L [place] % (Auto) 7.4 Eos % (Auto) 0.5 Baso % (Auto) 0.2 Absolute Neuts (auto) 6.9 Absolute Lymphs (auto) 1.10 Nucleated RBC % 0 Sodium 136 Potassium 3.5 Chloride 105 Carbon Dioxide 22.0 Anion Gap 9 BUN 8 Creatinine 0.55 Estim Creat Clear Calc 137.47 Est GFR (MDRD) Af Amer 165 Est GFR (MDRD) Non-Af 137 BUN/Creatinine Ratio 14.6 Glucose 84 Lactic Acid 1.8 Calcium 9.5 Total Bilirubin 0.40 AST 22 ALT 28 Alkaline Phosphatase 59 Troponin I High Sens 4 Total Protein 7.0 Albumin 3.3 Globulin 3.7 Albumin/Globulin Ratio 0.9 HCG, Quant Urine Color Urine Clarity Urine pH Ur Specific [place] Urine Protein Urine Glucose (UA) Urine Ketones Urine Occult Blood Urine Nitrite Urine Bilirubin Urine Urobilinogen Ur Leukocyte Esterase Urine RBC Urine WBC Ur Squamous Epith Cells Urine Bacteria Urine Mucus 06/18/22 06/18/22 15:05 16:15 WBC RBC Hgb Hct MCV MCH MCHC RDW Std Deviation RDW Coeff of Saad Plt Count MPV Immature Gran % (Auto) Neut % (Auto) Lymph % (Auto) [place] % (Auto) Eos % (Auto) Baso % (Auto) Absolute Neuts (auto) Absolute Lymphs (auto) Nucleated RBC % Sodium Potassium Chloride Carbon Dioxide Anion Gap BUN Creatinine Estim Creat Clear Calc Est GFR (MDRD) Af Amer Est GFR (MDRD) Non-Af BUN/Creatinine Ratio Glucose Lactic Acid Calcium Total Bilirubin AST ALT Alkaline Phosphatase Troponin I High Sens Total Protein Albumin Globulin Albumin/Globulin Ratio HCG, Quant 44647 H Urine Color Yellow Urine Clarity Clear Urine pH 6.0 Ur Specific [place] 1.010 Urine Protein 15 H Urine Glucose (UA) Normal Urine Ketones 15 H Urine Occult Blood Negative Urine Nitrite Negative Urine Bilirubin Negative Urine Urobilinogen Normal Ur Leukocyte Esterase 25 H Urine RBC 0 SEEN Urine WBC 0-5 SEEN Ur Squamous Epith Cells 0-5 SEEN Urine Bacteria RARE Urine Mucus 0 SEEN Radiography CTA PE Study: No Evidence of PE and No Evidence of Dissection Diagnostic Testing: Clinical Impression(s) from Imaging Studies Chest CTA 06/18/22 14:38 IMPRESSION: 1. No acute findings. 2. Hepatic steatosis. Electronically Signed: Loulou Dobbs MD at 16:53 EDT Reading Location ID and State: [id number] / Tel , Service support , EKG Initial EKG: Attestation: I personally reviewed and interpreted this EKG as follows: Interpretation: Sinus Rhythm (91) and No Acute Injury Pattern Comments: EKG was obtained. On my independent interpretation, it showed a normal sinus rhythm with a rate of 91. WA interval, QRS interval, and QTc intervals were all normal. [place] was normal. There are no acute ST or T wave changes. Prior EKG tracings: available for review Prior: Unchanged (03/10/2021) Treatment and Re-Evaluation :: Patient was given a dose of aspirin here. Patient's blood pressure was rechecked and was 118/84. Orthostatic vital signs were obtained. There is no significant change in heart rate or blood pressure. Patient was given IV fluids. Patient was feeling better on reevaluation. Patient was advised of her findings. Patient was instructed to follow-up with her primary care physician and [facility] in 5 to 7 days. Patient understood and was agreeable with the plan. All questions were answered. Discharge Plan Triage Chief Complaint: Palpitations ED Provider: Marko Vega Dx/Rx/DC Orders Clinical Impression: Heart palpitations, Second trimester Instructions: ED Palpitations Prescriptions: No Action omeprazole 40 mg capsule,delayed release(DR/EC) 40 mg PO DAILY escitalopram oxalate [Lexapro] 10 mg tablet 10 mg PO DAILY Prenatabs FA 1 TABLET tablet 1 tab PO DAILY cetirizine [Zyrtec] 10 mg Tablet 10 mg PO DAILY PRN (Reason: allergies) Primary Care Provider: Linn Kate Referrals: Linn Kate PA [Primary Care Provider] - 3-5 Days Disposition Disposition: Home, Self Care Discharge Date/Time: 06/18/22 18:48
[2022-06-18 15:19] LABS: Absolute Neutrophil Count 6.9 X10^3/uL (2.0-7.7); Basophil# 0.02 X10^3/uL; Basophil% 0.2 % (0-1); Eosinophil# 0.04 X10^3/uL; Eosinophils% 0.5 % (0-5); Hematocrit 37.1 % (37-47); Hemoglobin 12.6 g/dL (12.0-15.0); Lymphocyte % 12.6 % (19-41); Mean Corpuscular Hgb 28.7 pg (27.0-32.0); Mean Corpuscular Volume 84.5 fL (81-99); Mean Platelet Vol. 10.5 fl (6.2-12.0); Monocyte# 0.64 X10^3/uL; Monocyte% 7.4 % (0-10); NRBC Flagged by Analyzer 0 % (0-5); Neutrophil # 6.85 X10^3/uL (2.7-7.7); Neutrophil % 78.7 % (47-70); Platelet Count 164 K/mm3 (150-450); RBC Distribution Width CV 13.9 % (11.6-14.6); RBC Distribution Width SD 42.5 fl (35.1-43.9); Red Blood Count 4.39 M/mm3 (4.2-5.4); White Blood Count 8.7 K/mm3 (4.4-11.0)
[2022-06-18] MEDS: 0.9% Normal Saline 1,000 ML 999 ML IV (15:26)
[2022-06-18 15:39] LABS: ALB/GLOB Ratio 0.9 RATIO (0.9-2.4); AST(SGOT) 22 U/L (15-37); Alanine Aminotransfer ALT/SGPT 28 U/L (13-56); Albumin, Serum 3.3 g/dL (3.2-5.0); Alkaline Phosphatase 59 U/L (45-117); Anion Gap 9 (5-15); BUN 8 mg/dL (7-18); BUN/Creat Ratio 14.6 RATIO (10-20); Calcium,Total 9.5 mg/dL (8.5-10.1); Chloride 105 mmol/L (98-107); Creatinine, Serum 0.55 mg/dL (0.55-1.02); EST Glomerular Filtration Rate 137 mL/min (>60); Est Glom Filt Rate - Afr Amer 165 mL/min (>60); Estimated Creatinine Clearance 137.47 ml/min; Globulin 3.7 g/dL (2.2-4.2); Glucose 84 mg/dL (74-106); Potassium 3.5 mmol/L (3.5-5.1); Sodium Level 136 mmol/L (136-145); Troponin-I HS 4 pg/mL (3.0-54.0)
[2022-06-18 16:01] LABS: Lactic Acid 1.8 mmol/L (0.4-1.9)
[2022-06-18 16:21] LABS: Mucous, Urine 0 SEEN /hpf (<or=2+); Red Blood Cells-Urine 0 SEEN /hpf (0-5)
[2022-06-18 16:32] LABS: Color, Urine Yellow (Yellow); Glucose, Dipstick Normal (Normal); Ketone-Dipstick 15 mg/dl (Negative); Leukocyte Esterase-Dipstick 25 /ul (Negative); Nitrite-Dipstick Negative (Negative); Occult Blood-Urine Negative /ul (Negative); Protein-Dipstick 15 mg/dl (Negative); Urine Bilirubin Dipstick Negative (Negative); Urine Clarity Clear (Clear); Urine Urobilinogen Normal (Normal)
[2022-06-18 16:52] LABS: Bacteria RARE /hpf (None Seen); Squamous Epithelial Cells - UA 0-5 SEEN /hpf (5-10); White Blood Cells 0-5 SEEN /hpf (0-5)
== END 2022-06-18 18:48 | disposition home or self-care (01) ==
PROVIDERS: Emergency Provider Emergency Medicine; Visit Provider Emergency Medicine
DX: O99.891 Other specified diseases and conditions complicating pregnancy (principal); R00.2 Palpitations; M54.9 Dorsalgia, unspecified; R11.0 Nausea; R07.9 Chest pain, unspecified; R06.02 Shortness of breath; Z3A.15 15 weeks gestation of pregnancy; E66.9 Obesity, unspecified; O99.212 Obesity complicating pregnancy, second trimester
CPT/HCPCS: 71275; 80053; 81001; 83605; 84484; 84702; 85025; 93005; 96360; 96361; 99285; J7030; Q9967

== ENCOUNTER → 2022-07-08 | Outpatient (CLI) | payer SELFPAY ==
[2022-07-08 14:07] LABS: Absolute Neutrophil Count 6.9 X10^3/uL (2.0-7.7); Basophil# 0.03 X10^3/uL; Basophil% 0.4 % (0-1); Eosinophil# 0.04 X10^3/uL; Eosinophils% 0.5 % (0-5); Hematocrit 38.3 % (37-47); Hemoglobin 12.6 g/dL (12.0-15.0); Lymphocyte % 10.7 % (19-41); Mean Corp Hgb Conc 32.9 g/dL (32-36); Mean Corpuscular Hgb 28.3 pg (27.0-32.0); Mean Corpuscular Volume 86.1 fL (81-99); Mean Platelet Vol. 11.2 fl (6.2-12.0); Monocyte# 0.52 X10^3/uL; Monocyte% 6.2 % (0-10); NRBC Flagged by Analyzer 0 % (0-5); Neutrophil # 6.85 X10^3/uL (2.7-7.7); Platelet Count 165 K/mm3 (150-450); RBC Distribution Width SD 43.3 fl (35.1-43.9); Red Blood Count 4.45 M/mm3 (4.2-5.4); White Blood Count 8.4 K/mm3 (4.4-11.0)
[2022-07-08 14:26] LABS: Protein, Urine (Random) 7.9 mg/dL (<11.9); Protein:Creat Ratio 152 mg/g CRE (0-200)
[2022-07-08 15:51] LABS: ALB/GLOB Ratio 0.8 RATIO (0.9-2.4); AST(SGOT) 22 U/L (15-37); Alanine Aminotransfer ALT/SGPT 26 U/L (13-56); Albumin, Serum 3.3 g/dL (3.2-5.0); Alkaline Phosphatase 69 U/L (45-117); Anion Gap 8 (5-15); BUN 5 mg/dL (7-18); BUN/Creat Ratio 9.6 RATIO (10-20); Calcium,Total 9.8 mg/dL (8.5-10.1); Chloride 104 mmol/L (98-107); Creatinine, Serum 0.52 mg/dL (0.55-1.02); EST Glomerular Filtration Rate 144 mL/min (>60); Est Glom Filt Rate - Afr Amer 174 mL/min (>60); Globulin 4.1 g/dL (2.2-4.2); Glucose 94 mg/dL (74-106); LDH 152 U/L (84-246); Potassium 3.8 mmol/L (3.5-5.1); Protein, Total 7.4 g/dL (6.4-8.2); Sodium Level 135 mmol/L (136-145)
== END | disposition home or self-care (01) ==
PROVIDERS: Visit Provider Obstetrics & Gynecology
DX: Z34.82 Encounter for supervision of other normal pregnancy, second trimester (principal)
CPT/HCPCS: 36415; 80053; 82570; 83615; 84156; 85025; 87086; 87088

== ENCOUNTER → 2022-07-22 | Outpatient (CLI) | payer SELFPAY ==
--- NOTE | 2022-07-22 13:06 | EKG12_ITS ---
Test Reason : SUP OF PREG. Blood Pressure : / mmHG Vent. Rate : 095 BPM Atrial Rate : 095 BPM P-R Int : 124 ms QRS Dur : 088 ms QT Int : 358 ms P-R-T Axes : 011 040 012 degrees QTc Int : 449 ms Normal sinus rhythm Normal ECG Confirmed by GLORIA RIGGINS, NOE ([id number]), sports editor ALICIA MCDANIELS ([id number]) on 07/23/2022 11:40:19 A M Referred By: Marty Hough Confirmed By:AMANUEL CASTRO MD
== END | disposition home or self-care (01) ==
LOC: PSN 12:56
PROVIDERS: Referring Provider Obstetrics & Gynecology; Visit Provider Obstetrics & Gynecology
DX: Z34.82 Encounter for supervision of other normal pregnancy, second trimester (principal)
CPT/HCPCS: 93005

== ENCOUNTER → 2022-08-19 | Outpatient (CLI) | payer MEDICAID, SELFPAY ==
[2022-08-19 15:11] LABS: Absolute Lymphocyte Count 0.95 X10^3/uL (0.83-4.51); Absolute Neutrophil Count 8.3 X10^3/uL (2.0-7.7); Basophil# 0.02 X10^3/uL; Basophil% 0.2 % (0-1); Eosinophil# 0.06 X10^3/uL; Eosinophils% 0.6 % (0-5); Hematocrit 37.8 % (37-47); Hemoglobin 12.4 g/dL (12.0-15.0); Lymphocyte # 0.95 X10^3/ul (0.83-4.51); Lymphocyte % 9.5 % (19-41); Mean Corp Hgb Conc 32.8 g/dL (32-36); Mean Corpuscular Hgb 28.4 pg (27.0-32.0); Mean Corpuscular Volume 86.7 fL (81-99); Mean Platelet Vol. 11.4 fl (6.2-12.0); Monocyte# 0.54 X10^3/uL; Monocyte% 5.4 % (0-10); NRBC Flagged by Analyzer 0 % (0-5); Neutrophil # 8.28 X10^3/uL (2.7-7.7); Neutrophil % 83.1 % (47-70); Platelet Count 171 K/mm3 (150-450); RBC Distribution Width CV 14.5 % (11.6-14.6); RBC Distribution Width SD 45.3 fl (35.1-43.9); Red Blood Count 4.36 M/mm3 (4.2-5.4)
[2022-08-19 15:13] LABS: Glucose Challenge Gest 1H 50g 143 mg/dL (70-140)
[2022-08-19 15:35] LABS: Syphilis Antibodies Non-reactive
== END | disposition home or self-care (01) ==
LOC: WOBLAB 14:16
PROVIDERS: Visit Provider Obstetrics & Gynecology
DX: Z34.82 Encounter for supervision of other normal pregnancy, second trimester (principal); Z3A.00 Weeks of gestation of pregnancy not specified
CPT/HCPCS: 36415; 82950; 85025; 86780

== ENCOUNTER → 2022-08-29 | Outpatient (CLI) | payer MEDICAID, SELFPAY ==
[2022-08-29 10:39] LABS: Glucose GTT-Gestational 1 Hr 205 mg/dL (<190)
[2022-08-29 10:39] LABS: Glucose GTT-Gestation. Fasting 87 mg/dL (<105)
[2022-08-29 11:22] LABS: Glucose GTT-Gestational 2 Hr 184 mg/dL (<165)
[2022-08-29 12:26] LABS: Glucose GTT-Gestational 3 Hr 159 L (<145)
== END | disposition home or self-care (01) ==
LOC: WOBLAB 08:39
PROVIDERS: Visit Provider Obstetrics & Gynecology
DX: O24.912 Unspecified diabetes mellitus in pregnancy, second trimester (principal); Z3A.00 Weeks of gestation of pregnancy not specified
CPT/HCPCS: 36415; 82951; 82952

== ENCOUNTER → 2022-10-08 | Outpatient (CLI) | payer MEDICAID, SELFPAY ==
[2022-10-08 15:57] LABS: Absolute Neutrophil Count 6.5 X10^3/uL (2.0-7.7); Basophil# 0.02 X10^3/uL; Basophil% 0.2 % (0-1); Eosinophil# 0.05 X10^3/uL; Eosinophils% 0.6 % (0-5); Hematocrit 38.9 % (37-47); Hemoglobin 12.7 g/dL (12.0-15.0); Lymphocyte % 14.2 % (19-41); Mean Corp Hgb Conc 32.6 g/dL (32-36); Mean Corpuscular Hgb 27.7 pg (27.0-32.0); Mean Corpuscular Volume 84.9 fL (81-99); Mean Platelet Vol. 12.4 fl (6.2-12.0); Monocyte# 0.66 X10^3/uL; Monocyte% 7.8 % (0-10); NRBC Flagged by Analyzer 0 % (0-5); Neutrophil # 6.47 X10^3/uL (2.7-7.7); Neutrophil % 76.4 % (47-70); Platelet Count 136 K/mm3 (150-450); RBC Distribution Width CV 14.5 % (11.6-14.6); RBC Distribution Width SD 44.9 fl (35.1-43.9); Red Blood Count 4.58 M/mm3 (4.2-5.4); White Blood Count 8.5 K/mm3 (4.4-11.0)
[2022-10-08 16:18] LABS: Protein, Urine (Random) < 6.0 mg/dL (<11.9)
[2022-10-08 16:30] LABS: ALB/GLOB Ratio 0.7 RATIO (0.9-2.4); AST(SGOT) 17 U/L (15-37); Alanine Aminotransfer ALT/SGPT 24 U/L (13-56); Albumin, Serum 2.8 g/dL (3.2-5.0); Alkaline Phosphatase 123 U/L (45-117); Anion Gap 8 (5-15); BUN 12 mg/dL (7-18); BUN/Creat Ratio 20.1 RATIO (10-20); Calcium,Total 9.3 mg/dL (8.5-10.1); Chloride 102 mmol/L (98-107); EST Glomerular Filtration Rate 124 mL/min (>60); Est Glom Filt Rate - Afr Amer 150 mL/min (>60); Globulin 4.3 g/dL (2.2-4.2); Glucose 85 mg/dL (74-106); LDH 174 U/L (84-246); Protein, Total 7.1 g/dL (6.4-8.2); Sodium Level 131 mmol/L (136-145)
== END | disposition home or self-care (01) ==
LOC: LAB 15:27
PROVIDERS: Referring Provider Obstetrics & Gynecology; Visit Provider Obstetrics & Gynecology
DX: Z34.83 Encounter for supervision of other normal pregnancy, third trimester (principal); Z3A.00 Weeks of gestation of pregnancy not specified
CPT/HCPCS: 36415; 80053; 82570; 83615; 84156; 85025; 87086; 87088

== ENCOUNTER → 2022-11-06 | Outpatient (CLI) | payer MEDICAID, SELFPAY | END | disposition home or self-care (01) | LOC: LABSPEC 11:42 | PROVIDERS: Visit Provider Obstetrics & Gynecology | DX: Z36.85 Encounter for antenatal screening for Streptococcus B (principal) | CPT/HCPCS: 87081 ==

== ENCOUNTER → 2022-11-13 | Outpatient (CLI) | payer MEDICAID, SELFPAY ==
[2022-11-13 12:36] LABS: Hematocrit 42.2 % (37-47); Hemoglobin 13.2 g/dL (12.0-15.0); Mean Corp Hgb Conc 31.3 g/dL (32-36); Mean Corpuscular Hgb 26.3 pg (27.0-32.0); Mean Corpuscular Volume 84.1 fL (81-99); Mean Platelet Vol. 13.8 fl (6.2-12.0); Platelet Count 155 K/mm3 (150-450); RBC Distribution Width CV 14.4 % (11.6-14.6); RBC Distribution Width SD 43.9 fl (35.1-43.9); Red Blood Count 5.02 M/mm3 (4.2-5.4); White Blood Count 8.7 K/mm3 (4.4-11.0)
== END | disposition home or self-care (01) ==
LOC: WOBLAB 11:22
PROVIDERS: Visit Provider Obstetrics & Gynecology
DX: Z34.83 Encounter for supervision of other normal pregnancy, third trimester (principal)
CPT/HCPCS: 36415; 85027

== ENCOUNTER 2022-11-15 07:37 | Inpatient (IN) | payer MEDICAID, SELFPAY ==
[2022-11-15] VITALS (19 sets, daily range): BP systolic 105–154; BP diastolic 59–101; PULSE 62–88; RESP 14–16; TEMP 36.3–36.6; O2SAT 95–100
[2022-11-15 07:34] LABS: ROM Internal Control Test YES-OK TO RESULT pt. (Internal QC)
[2022-11-15 07:35] LABS: ROM Patient Test POSITIVE (Negative); Record Kit Lot#, ROM+ K1374
[2022-11-15] MEDS: Lactated Ringers 1,000 ML 999 ML IV (08:10)
[2022-11-15 08:34] LABS: Absolute Lymphocyte Count 1.81 X10^3/uL (0.83-4.51); Absolute Neutrophil Count 6.4 X10^3/uL (2.0-7.7); Basophil# 0.04 X10^3/uL; Basophil% 0.4 % (0-1); Eosinophil# 0.12 X10^3/uL; Eosinophils% 1.3 % (0-5); Hematocrit 42.1 % (37-47); Hemoglobin 13.5 g/dL (12.0-15.0); Lymphocyte # 1.81 X10^3/ul (0.83-4.51); Lymphocyte % 19.7 % (19-41); Mean Corp Hgb Conc 32.1 g/dL (32-36); Mean Corpuscular Hgb 26.4 pg (27.0-32.0); Mean Corpuscular Volume 82.2 fL (81-99); Mean Platelet Vol. 14.1 fl (6.2-12.0); Monocyte# 0.67 X10^3/uL; Monocyte% 7.3 % (0-10); NRBC Flagged by Analyzer 0.3 % (0-5); Neutrophil # 6.44 X10^3/uL (2.7-7.7); Neutrophil % 70.1 % (47-70); Platelet Count 148 K/mm3 (150-450); RBC Distribution Width CV 14.5 % (11.6-14.6); RBC Distribution Width SD 42.9 fl (35.1-43.9); Red Blood Count 5.12 M/mm3 (4.2-5.4); White Blood Count 9.2 K/mm3 (4.4-11.0)
[2022-11-15] MEDS: Betamethasone/Betamethasone 30 MG/5 ML Vial 12 MG IM (08:35)
[2022-11-15] MEDS: Acetaminophen 500 MG Tablet 1000 MG PO ×3 (08:50→21:32)
[2022-11-15] MEDS: Sodium Citrate/Citric Acid 30 ML UDC PO (08:50)
--- NOTE | 2022-11-15 08:55 | HP.PCM.OB_ITS ---
History and Physical Date of Admission: 11/15/22 HPI: 32-year-old G3, P1 at 36/5 weeks, ASHLEY 12/08/2022 by LMP, admitted for rupture membranes. Denies regular contractions, vaginal bleeding. Reports movement. Denies headache or vision changes, chest pain or shortness of breath, nausea or vomiting, diarrhea or constipation, fevers or chills. complicated by: Class I obesity, chronic hypertension on labetalol 50 mg twice daily, gestational diabetes type A1, hydronephrosis status post MFM consult recommending amoxicillin 10 mg/kg and urology follow-up within 1 month (appointment already scheduled). Breech position. OB/UN history: G1: Full-term G2: First trimester SAB G3: Current Medical history: 1. Class I obesity 2. Chronic hypertension 3. Anxiety and depression Surgical history 1. Appendectomy 2. Knee arthroscopy Medications: 1. Escitalopram 2. Labetalol 3. Omeprazole 4. vitamin Allergies: Sulfa Social history: Denies tobacco, alcohol, drug use Family history: Noncontributory Review of system: Negative otherwise stated above Physical exam: Vital signs:Blood pressure 144/89, heart rate 70 General: No acute distress HEENT: Normocephalic/atraumatic Cardiorespiratory: No increased effort Abdomen: Soft, nontender, gravid Cervical exam: ROM positive, 2 cm per RN Extremities: Minimal edema Neurologic: No focal deficits Musculoskeletal: Moves all extremities equally heart rate: 145/mod monica/+accel/intermittent variable decel [place]: irregular Assessment/plan: 32-year-old G3, P1 at 36/5 weeks, ASHLEY 12/08/2022 by LMP, admitted for rupture membranes, for section for breech. complicated by: Class I obesity, chronic hypertension on labetalol 50 mg twice daily, gestational diabetes type A1, hydronephrosis. ?Admit for primary section ? 2 g Ancef and 500 mg azithromycin preoperatively ? GDM A1: Blood sugars per routine ? All risk, benefits, alternatives were discussed with the patient. Risks include but are not limited to: Risk of bleeding to the point of transfusion, infection, injury to surrounding tissue including bowel/bladder potentially requiring prolonged Zaragoza catheter use, VTE, ICU admission. Patient aware and consented. ? hydronephrosis: status post MFM consult recommending amoxicillin 10 mg/kg and urology follow-up within 1 month (appointment already scheduled). Bulk Loader made aware.
[2022-11-15 08:56] LABS: Bedside Glucose 71 mg/dL (74-106)
--- NOTE | 2022-11-15 09:03 | OP.PCM_ITS ---
Maternal Data Information Final ASHLEY: 12/08/22 Final ASHLEY Source: LMP Details Operative Information Date of Procedure: 11/15/22 Pre-Operative Diagnosis: [place] intrauterine , prelabor rupture of membranes, breech position, GDM A1, chronic hypertension, hydronephrosis Post-Operative Diagnosis: [place] intrauterine , prelabor r upture of membranes, breech position, GDM A1, chronic hypertension, hydronephrosis Indications Narrative: 32-year-old G3, P1 at 36/5 weeks, ASHLEY 12/08/2022 by LMP, admitted for primary section for breech in the setting of prelabor rupture of membranes. All risk, benefits, alternatives were discussed with the patient. Risks include but are not limited to: Risk of bleeding to the point of transfusion, infection, injury to surrounding tissue including bowel/bladder potentially requiring prolonged Zaragoza catheter use, VTE, ICU admission. Patient aware and consented. Classification: KANA Procedure Type: low transverse pay per click strategist #1: Huyen Waller Type of Anesthesia: Spinal Antibiotic Given: Ancef 2 grams IV x1 and Zithromax 500 mg/5 mL X1 Estimated Blood Loss: 800cc Fluids Replaced: 750cc Findings Description of Procedure: Procedure: Patient taken to the operating room and spinal anesthesia placed. Patient placed in the supine position with a left lateral tilt. Prepped and draped in the usual sterile fashion. Pfannenstiel skin incision made with scalpel and carried down through subcutaneous tissue. Fascia nicked on either side of the midline with scalpel and extended bluntly. Kajal clamps placed at the superior fascial edge which was tented up and underlying rectus muscles dissected off bluntly. Kajal clamps moved to inferior fascial edge and rectus muscles were dissected off in a similar fashion. Rectus muscles were noted to be at midline and peritoneum entered bluntly. Bladder blade placed. Head confirmed on palpation to be on maternal right. Low transverse uterine incision made with scalpel. buttocks delivered followed by legs being swe pt across the abdomen. Blue towel used to wrap around baby and torso gently delivered. Arms swept across the chest and delivered. Head flexed and delivered. Cord clamped and cut. Baby to nursing. Manual extraction of placenta. Uterus cleared of all clots. Hysterotomy closed with a running stitch followed by a second vertical imbricating stitch. Hemostatic with Bovie and Jim. Peritoneum closed with a running stitch. Rectus muscles reapproximated with horizontal mattress sutures. Fascia closed with a running stitch. Subcutaneous tissue irrigated. Jim placed in the subcutaneous area. Subcutaneous tissue reapproximated with running stitch. Skin closed with running subcuticular stitch. At the end of the procedure all needle, lap, sponge counts were correct. UOP: 75 cc clear urine A Gender: Male (1 minute): 6 (5 minute): 9 Complications Complications: None
[2022-11-15] MEDS: Cefazolin 2 GM in 0.9% Normal Saline 100 ML IV (09:16)
[2022-11-15] MEDS: Ketorolac 30 MG/ML Syringe IV ×3 (10:51→23:30)
[2022-11-15] MEDS: Oxytocin 15 Units/NS 250ml 15 UNITS/250 ML IV.SOLN 83 UNITS IV (11:15)
[2022-11-15] MEDS: Lactated Ringers 1,000 ML 100 ML IV (16:08)
[2022-11-15 17:27] LABS: Bedside Glucose 160 mg/dL (74-106)
[2022-11-16] MEDS: Acetaminophen 500 MG Tablet 1000 MG PO ×4 (03:42→22:51)
[2022-11-16 03:44] VITALS: BP 126/85; PULSE 62; RESP 16; TEMP 36.4; O2SAT 97
[2022-11-16] MEDS: Ketorolac 30 MG/ML Syringe IV (05:01)
[2022-11-16 05:18] LABS: Hematocrit 37.6 % (37-47); Hemoglobin 11.8 g/dL (12.0-15.0); Mean Corp Hgb Conc 31.4 g/dL (32-36); Mean Corpuscular Hgb 26.4 pg (27.0-32.0); Mean Corpuscular Volume 84.1 fL (81-99); Mean Platelet Vol. 13.4 fl (6.2-12.0); Platelet Count 146 K/mm3 (150-450); RBC Distribution Width CV 14.6 % (11.6-14.6); Red Blood Count 4.47 M/mm3 (4.2-5.4); White Blood Count 16.4 K/mm3 (4.4-11.0)
[2022-11-16 05:33] LABS: Bedside Glucose 95 mg/dL (74-106)
--- NOTE | 2022-11-16 07:53 | PCM.PN.OB ---
Subjective Subjective Patient feeling well. Sore but pain is controlled. Lochia minimal. Objective Data Objective Data Vital Signs: Vital Signs Temp Pulse Resp BP Pulse Ox O2 Del Method 97.5 F L 62 16 126/85 H 97 Room Air 11/16/22 03:44 11/16/22 03:44 11/16/22 03:44 11/16/22 03:44 11/16/22 03:44 11/15/22 23:39 Oxygen Delivery Method Room Air Weight: 94.5 kg Intake & Output: Intake and Output for Last 24 Hours 11/14/22 11/15/22 11/16/22 23:59 23:59 23:59 Intake Total 1615 / 1615 886.67 / 886.67 Output Total 3019 / 3019 Balance -1404 / -1404 886.67 / 886.67 Lab / Micro Data Attestation: I reviewed the patient's lab results. 11/16/22 05:05 Labs: Laboratory Results - last 24 hr 11/15/22 08:10: WBC 9.2, RBC 5.12, Hgb 13.5, Hct 42.1, MCV 82.2, MCH 26.4 L, MCHC 32.1, RDW Std Deviation 42.9, RDW Coeff of Saad 14.5, Plt Count 148 L, MPV 14.1 H, Immature Gran % (Auto) 1.200 H, Neut % (Auto) 70.1 H, Lymph % (Auto) 19.7, Bradford % (Auto) 7.3, Eos % (Auto) 1.3, Baso % (Auto) 0.4, Absolute Neuts (auto) 6.4, Absolute Lymphs (auto) 1.81, Nucleated RBC % 0.3, Blood Type AB POSITIVE, Antibody Screen NEGATIVE 11/15/22 08:33: POC Glucose 71 L 11/15/22 17:03: POC Glucose 160 H 11/16/22 05:05: WBC 16.4 H, RBC 4.47, Hgb 11.8 L, Hct 37.6, MCV 84.1, MCH 26.4 L, MCHC 31.4 L, RDW Std Deviation 44.0 H, RDW Coeff of Saad 14.6, Plt Count 146 L, MPV 13.4 H 11/16/22 05:13: POC Glucose 95 Physical Exam Const alert, oriented x3 and no apparent distress HEENT normocephalic Head and Scalp: atraumatic Neck full ROM Resp normal respiratory effort Cardio regular rate GI normal to inspection, nondistended, normoactive bowel sounds GI Narrative: Uterus 2 cm below umbilicus, dressing clean and dry Back/Spine normal ROM Extremity normal to inspection Extremity Narrative: Minimal pedal edema Neuro no focal motor deficits and no sensory deficits noted Psych mental status grossly normal and affect normal Assessment & Plan (1) Other acute postprocedural pain: PLAN: Postoperative day 1 status post primary section for breech. Baby in special care. Patient doing well, pain controlled. Plans for breast-feeding. (2) Delivery by section:
--- NOTE | 2022-11-16 07:55 | DCINST_ITS ---
Discharge Instructions Diet Discharge Diet: No restrictions Activity Discharge Activity: Return to Normal Activity and May Shower May resume sexual activity in: 4-6 weeks Weight Bearing Status: Weight bearing as tolerated Lifting Restrictions: No greater than 25 pounds Dressing / Incision Call your doctor if you observe: Fever of 101 or Higher, Change in Color, Inability to urinate, Using more than 1 pad per hour, Shortness of breath, Dizziness, Swelling in the ankles, Chest pain and Calf discomfort Follow Up Care Please Follow Up With: Marty Hough MD When: 2-week post operative Test Results: Test results from this visit will be discussed in further detail at your follow- up appointment, if applicable. Discharge Plan Admission Admit Date/Time: 11/15/22 07:37 Primary Reason for Your Visit: section Attending Provider: Jelena Hough Primary Care Provider: Linn Kate Discharge Orders/Prescriptions Prescriptions: New oxycodone 5 mg Tablet 5 mg PO Q6H PRN (Reason: pain) 4 Days Qty: 14 0RF Continued omeprazole 40 mg capsule,delayed release(DR/EC) 40 mg PO DAILY escitalopram oxalate [Lexapro] 10 mg tablet 10 mg PO DAILY Prenatabs FA 1 TABLET tablet 1 tab PO DAILY labetalol 100 mg tablet 50 mg PO BID Referrals / Follow Up: Linn Kate PA [Primary Care Provider] - Disposition Disposition (needs filled in before D/C Order can be placed): Home, Self Care
[2022-11-16 09:15] VITALS: BP 128/82; PULSE 79; RESP 16; TEMP 36.9; O2SAT 97
[2022-11-16] MEDS: Pantoprazole Sodium 40 MG Tablet PO (09:21)
[2022-11-16] MEDS: Senna/Docusate Sodium 1 Tablet PO (09:21)
[2022-11-16] MEDS: Escitalopram Oxalate 10 MG Tablet PO (09:21)
[2022-11-16] MEDS: Labetalol 100 MG Tablet 50 MG PO ×2 (09:22→22:51)
[2022-11-16] MEDS: Ibuprofen 600 MG Tablet PO ×2 (11:35→18:04)
[2022-11-16 14:25] VITALS: BP 119/77; PULSE 77; RESP 16; TEMP 36.9; O2SAT 96
[2022-11-16] MEDS: Prenatal Vits Tablet 1 TABLET PO (16:15)
[2022-11-16] MEDS: Polyethylene Glycol 3350 17 GM PACKET PO (19:48)
[2022-11-16 20:10] VITALS: BP 130/77; PULSE 62; RESP 15; TEMP 36.7; O2SAT 97
[2022-11-16] MEDS: Enoxaparin 40 MG/0.4 ML Syringe SC (22:51)
[2022-11-17] MEDS: Ibuprofen 600 MG Tablet PO ×3 (00:24→13:10)
[2022-11-17 03:23] VITALS: BP 112/68; PULSE 82; RESP 15; TEMP 37.2; O2SAT 97
[2022-11-17] MEDS: Acetaminophen 500 MG Tablet 1000 MG PO ×3 (04:21→16:59)
--- NOTE | 2022-11-17 09:33 | PCM.PN.OB ---
Subjective Subjective Overall doing well. Lochia minimal. Reports some dysuria and urinary frequency. Objective Data Objective Data Vital Signs: Vital Signs Temp Pulse Resp BP Pulse Ox O2 Del Method 98.9 F 82 15 112/68 97 Room Air 11/17/22 03:23 11/17/22 03:23 11/17/22 03:23 11/17/22 03:23 11/17/22 03:23 11/17/22 03:23 Oxygen Delivery Method Room Air Weight: 94.5 kg Intake & Output: Intake and Output for Last 24 Hours 11/15/22 11/16/22 11/17/22 23:59 23:59 23:59 Intake Total 1615 / 1615 886.67 / 886.67 Output Total 3019 / 3019 Balance -1404 / -1404 886.67 / 886.67 Lab / Micro Data Attestation: I reviewed the patient's lab results. 11/16/22 05:05 Physical Exam Const alert, oriented x3 and no apparent distress HEENT normocephalic Head and Scalp: atraumatic Neck full ROM Resp normal respiratory effort Cardio regular rate GI normal to inspection, nondistended, normoactive bowel sounds GI Narrative: Uterus 2 cm below umbilicus, dressing clean and dry Back/Spine normal ROM Extremity normal to inspection Extremity Narrative: Minimal pedal edema Neuro no focal motor deficits and no sensory deficits noted Psych mental status grossly normal and affect normal Assessment & Plan (1) Delivery by section: PLAN: Postop day 2 status post primary section for breech. Complicated by chronic hypertension on labetalol 50 mg twice daily, continued. Will check for UTI with urinalysis and urine culture due to patient reported dysuria. Lochia minimal. Discharge home today. (2) Other acute postprocedural pain: (3) Chronic hypertension:
[2022-11-17 10:31] VITALS: BP 118/74; PULSE 95; RESP 16; TEMP 36.6; O2SAT 97
[2022-11-17] MEDS: Escitalopram Oxalate 10 MG Tablet PO (10:40)
[2022-11-17] MEDS: Labetalol 100 MG Tablet 50 MG PO (10:41)
[2022-11-17 11:13] LABS: Bacteria 0 SEEN /hpf (None Seen); Mucous, Urine 0 SEEN /hpf (<or=2+); Red Blood Cells-Urine 0 SEEN /hpf (0-5); Squamous Epithelial Cells - UA 0 SEEN /hpf (5-10); White Blood Cells 0 SEEN /hpf (0-5)
[2022-11-17 12:22] LABS: Color, Urine Straw (Yellow); Glucose, Dipstick Normal (Normal); Ketone-Dipstick Negative (Negative); Leukocyte Esterase-Dipstick Negative /ul (Negative); Nitrite-Dipstick Negative (Negative); Occult Blood-Urine Negative /ul (Negative); Protein-Dipstick Negative (Negative); Urine Bilirubin Dipstick Negative (Negative); Urine Clarity Clear (Clear); Urine Urobilinogen Normal (Normal); Urine pH 6.5 (5.0 - 8.0)
[2022-11-17] MEDS: Prenatal Vits Tablet 1 TABLET PO (13:10)
[2022-11-17 15:35] VITALS: BP 112/64; PULSE 89; RESP 16; TEMP 36.8; O2SAT 94
--- NOTE | 2022-11-18 15:05 | CASEMGMT ---
Social Work Assessment Labor and Delivery Unit Patient Address: [place] [address] Phone number: [phone] Date of Referral: 11/15/22 Time of Referral:? 173 Referred By: Jelena Hough Date of Intervention: ?11/18/22? Time of Intervention:? 1420 Reason for Referral:? anxiety, depression, PPD Sw completed chart review and acknowledges social work consult. Sw notes that baby currently requires admission to [facility] due to hypoglycemia. Sw presented to bedside and introduced self to parents, mother of baby (MOB- Linn) and father of baby (FOB- Raymundo). Sw explained reason for sw involvement, completed psychosocial assessment and provided literature and education on baby blues and depression. Sw asked FOB to step out of room momentarily so that MOB could complete [place] Depression Scale. History obtained from: medical records and mother of baby (MOB) and FOB. Household composition: Currently residing in the home is MOB and FODejan. Lincoln baby boy is second child together, they also have a 9 year old daughter, Marian who resides with them. MOB states that housing is safe and adequate, no concerns with housing at this time. Patient's parent/guardian status:? MOB states that she and FOB met online and have been for 11 years. While meeting with MOB privately she denies any concerns of domestic violence or intimate partner violence. Medical History: HAZEL is 3, para 1- now 2. HAZEL had a scheduled for later this month, however her water broke and she required early due to baby being breech. HAZEL received routine care with Will during her . Lincoln baby boy, named Ryland, was born on [birth year] weighing 5lb 15oz and his apgars were 6 and 9 at one and five minutes of life respectfully. Baby is currently admitted to [facility] due to hypoglycemia as a result of MOB having gestational diabetes. MOB states that she appreciates being able to still obtain a room at hospital under hotel status. Educational Status:?MOB reports that she obtained her GED, no college education. FOB states that he graduated from high school and has some college education, but did not graduate. Financial Status: FOB is gainfully employed outside of the home. FOB states that he works as an office professionals at a [employer]. Supplies:??HAZEL states that they have obtained all necessary baby supplies including car seat, safe sleep space, clothes, diapers, wipes. Childcare/Caregiver(s):?HAZEL will be the primary caregiver to baby as she is a stay at home mom. Transportation:?? Both parents have drivers license and reliable transportation. No barriers to transportation at this time. Programs/Agencies Involved: HAZEL states that she is working on getting connected to [facility]? Children Services/Legal Issues:??No former involvement, no issues or concerns warranting referral at this time. Behavioral Health Issues: ??Mental Health History: FARRAH states that he has not officially been diagnosed but he struggles with OCD and mild depression. HAZEL states that she has been diagnosed with anxiety, depression and experienced depression following her last delivery. HAZEL states that she is prescribed Lexapro, and that is why she is not breast feediing/ providing breast milk because she wanted to start back on her medication as soon as she was able after delivery. ?HAZEL stated that her symptoms at that time were extreme mood swings, and she did not feel like doing anything, her garcia with her daughter was slow to develop. HAZEL states that at this time she feels as though she already has a connection with [facility] [employer]. HAZEL stated that she feels better this time, which is surprising to her due to the fact that baby is in Special Care Nursery. HAZEL stated that she does feel guilty that baby was born early and is having trouble with feeds/ blood sugars, and part of her fears it is her fault. Molly utilized active listening and provided support/ education. HAZEL completed the [place] Depression Scale and her score was a 13. Sw educated HAZEL on her score and encouraged her to stay connected to the counselor that she is already connected to. HAZEL stated she sees someone regularly at [facility]. Sw also encouraged MOB and FODejan to have a conversation about how FARRAH is able to support her and help her during this period. Sw also encouraged HAZEL to stay connected to her natural supports, friends/ family. MOB denies any SI or history of SI. ?? Substance Use History:?MOB denies substance use prior to and during . ? Family History:?Parents deny mental health history and substance use history from both sides of family. ? Drug Screens: ?No urine screens observed in chart review. Family/Social Stressors:? Parents deny and stressors or concerns at this time. Support Systems: MOB states that FOB is her biggest support, along with her mom and a best friend. Depression/Shaken Baby/Safe Sleeping:? Sw provided education and literature on signs and symptoms to be on the lookout for regarding depression/ anxiety and baby blues. Sw educated parents on shaken baby prevention and ABCs of safe sleep. Parents expressed understanding. ASSESSMENT:? Parents engaged in assessment, answers to questions asked were at times short and to the point, no elaboration provided. MOB was more open and engaged throughout assessment. Parents have obtained everything they need for baby and are seeing him regularly in [facility] to assist with feeds. MOB with mental health and history and is established with counseling and is on medication. Parents were encouraged to ask to talk with social work should any needs or concerns arise prior to baby's discharge from [facility] Care [facility]. PLAN:? MOB already discharged from hospital following delivery of baby. MOB staying under hotel status due to baby being admitted to Special Care Nurs[facility]. Baby to be discharged to parents when medically ready. ?No other services requested or indicated. Ethel Connors, EDGER MACHINE OPERATOR, SQL ANALYST
== END 2022-11-17 18:57 | disposition home or self-care (01) | DRG 787 ==
LOC: WPOUT 07:38 → WP 07:38
PROVIDERS: Admitting Provider Student in an Organized Health Care Education/Training Program; Referring Provider Student in an Organized Health Care Education/Training Program; Visit Provider Student in an Organized Health Care Education/Training Program
DX: O32.1XX0 Maternal care for breech presentation, not applicable or unspecified (principal); O10.02 Pre-existing essential hypertension complicating childbirth; F32.A Depression, unspecified; F41.9 Anxiety disorder, unspecified; E66.9 Obesity, unspecified; O24.420 Gestational diabetes mellitus in childbirth, diet controlled; O42.913 Preterm premature rupture of membranes, unspecified as to length of time between rupture and onset of labor, third trimester; O99.344 Other mental disorders complicating childbirth; O99.214 Obesity complicating childbirth; Z3A.36 36 weeks gestation of pregnancy; Z37.0 Single live birth; O99.893 Other specified diseases and conditions complicating puerperium; R30.0 Dysuria
CPT/HCPCS: 59025; 59050; 81001; 82962; 84112; 85025; 85027; 86780; 86850; 86900; 86901; 87086; 99221; J7120; G0378; J0702